=== PATIENT | female | born 1985 | race Caucasian/White ===

== ENCOUNTER → 2021-10-24 00:23 | Outpatient (CLI) | payer OTHER, SELFPAY ==
[2021-10-24 11:14] LABS: SARS-CoV-2 RNA PCR Negative
== END ==
PROVIDERS: Visit Provider Obstetrics & Gynecology
DX: Z01.812 Encounter for preprocedural laboratory examination (principal); Z20.822 Contact with and (suspected) exposure to COVID-19
CPT/HCPCS: C9803; U0003; U0005

== ENCOUNTER 2021-10-24 08:03 | Outpatient (CLI) | payer OTHER, SELFPAY ==
[2021-10-24 08:57] LABS: Hematocrit 35.9 % (37.0-47.0); Hemoglobin 11.7 g/dL (12.0-15.0)
== END 2021-10-24 08:04 | disposition home or self-care (01) ==
LOC: ANHSURGERY 08:08
PROVIDERS: Visit Provider Obstetrics & Gynecology
DX: R10.2 Pelvic and perineal pain (principal); Z01.818 Encounter for other preprocedural examination
CPT/HCPCS: 36415; 85014; 85018; 86850; 86900; 86901

== ENCOUNTER 2021-10-27 01:26 | Day surgery (SDC) | payer OTHER, SELFPAY ==
[2021-10-17 10:44] VITALS: BMI 23.6
--- NOTE | 2021-10-17 11:14 | PC.NURSE ---
Report to the Outpatient Waiting Room, entrance under the green pavilion located off [facility], at 0600 on 10-27-21. OR Time: 0730. - You and your visitor will be asked a series of questions to screen for COVID 19 for your protection. - A mask is required within the hospital. Preoperative COVID Testing Requirements: No COVID Test needed if: (proof is required; if not received patient will have Rapid Test prior to entry) - Patient has received COVID Vaccine at least 14 days prior to procedure date or - Patient has positive COVID test result within last 90 days of surgery date. COVID Test needed if above criteria is not met If not COVID vaccinated a COVID test must be conducted within 72 hours of surgery and patient is asked to isolate self from time of testing until procedure. You will go to the [facility] for your COVID testing. The [facility] site is located at the corner of [address] [facility]. You will only be called if COVID results are positive and your surgeon may reschedule your elective surgery date. 10-24-21 @ 0800 Patients may have clear liquids (water, carbonated beverages, clear teas, apple juice) until 3 hours prior to surgery with a maximum of 20 ounces. 0430 - No food from midnight until time of surgery - Infants may have breast milk until 4 hours before surgery, formula 6 hours prior to surgery. - Children will be allowed to drink immediately following surgery. If applicable, please bring a bottle or sippy cup to assist with drinking. Juice, water, soda, and popsicles are readily available. For infants on formula, please bring formula the day of surgery. Pacifiers are allowed. Take the following medications with a SIP of water the morning of surgery: None Medications to discontinue per physician: vitamins and supplements Date to take last dose: 10-24-21 Please no make-up, nail faroese, hairspray, perfume, deodorant, or body powder the day of surgery. No jewelry (including any body piercings) or valuables the day of surgery, leave them at home. Please take a shower or bath the night before, or the morning of, surgery with an antibacterial soap. Wear comfortable, loose fitting clothing. Children are encouraged to wear pajamas. - Jewelry must be removed prior to entering the operating room. Rings and piercings that are not removed may be cut off. - The hospital will not accept responsibility for valuables. - Please leave all valuables, including medications, at home the day of surgery. If you are going home after surgery, a licensed wheat combine driver must drive you home. - NO public transportation without another adult. - We recommend that an adult stay with you for 24 hours following discharge. - We also recommend that you do not drive, make important decision, drink alcoholic beverages, or take any drugs that were not prescribed by your health care provider for at least 24 hours after your discharge time. For Pediatric surgeries, we recommend two adults accompany the child home (only one inside the building at this time). One visitor will be allowed to accompany the patient into the hospital. Patients visitor will be instructed to remain with patient at all times or leave the building. We will allow the visitor to come back to the postoperative area when patient is ready. Follow any additional instructions given to you from your surgeon. Telephone instructions given to Dior Nuñez and asked if any additional questions and then verbalized understanding. Patient advised to call surgeon office or pre surgery nurse liaison [phone] if any additional questions.
--- NOTE | 2021-10-26 07:48 | P.HP_ITS ---
H&P: HPI History of Present Illness Date/Time: 10/26/21 07:48 36-year-old patient admitted for diagnostic laparoscopy with hysteroscopy and dilatation curettage secondary to excessive heavy bleeding dyspareunia and pelvic pain. She has had chronic and severe pelvic pain ultrasound showed a right complex cyst with moderate marked of fluid and enlarged uterus. Risks and benefits reviewed in full details. She had all questions answered and asked to proceed Chief Complaint: pelvic pain and bleeding Review of Systems Review of Systems: All systems reviewed & are unremarkable except as noted in HPI and below [facility] Family History Family History Mother Hypertension Social History Social History Smoking packs per day: 0.5 Smoking cigarettes per day: 10.0 Years smoked: 10 Smoking pack-years: 5.00 Smoking status: Former smoker Tobacco type: cigarettes Second hand tobacco smoke exposure: No Alcohol intake: current Drinks per week: 1 Alcohol use details: occasionally Substance use: never Substance use type: does not use Spiritual care concerns: No Meds Home Medications and Allergies Home Medications Medication Instructions Recorded Confirmed Type oy-ya-LJ-vit O-clfvd-svg-coQ10 1 cap PO DAILY 10/17/21 10/17/21 History [Daily Multivitamin] Allergies Allergy/AdvReac Type Severity Reaction Status Date / Time No Known Allergies Allergy Verified 10/17/21 10:38 Exam Const: General: no acute distress Eyes: General: appearance normal, both eyes and all related structures Neck: Neck: supple and no JVD Thyroid: thyroid normal Resp: Effort & Inspection: normal respiratory effort Auscultation: clear to auscultation bilaterally Cardio: Rate: regular rate Rhythm: regular rhythm GI: Inspection: non-distended GI Palp: Yes Soft to palpation, No Tenderness to palpation present (GI) and No Guarding due to palpation present (GI) Auscultation: normal bowel sounds : External Female Exam: normal external appearance Speculum Exam - Vagina: normal appearance of the vagina Speculum Exam - Cervix: normal appearance of the cervix Bimanual exam- vagina & uterus: enlarged Bimanual Exam- Adnexa, other: tender Skin: General skin exam: no rashes or lesions noted Extrem: General: normal to inspection and no edema Psych: Mental Status: mental status grossly normal Affect: normal affect Assessment and Plan Additional Plan impression: Pelvic pain with enlarged uterus and bleeding Plan: Laparoscopy/ hysteroscopy / dilatation and curettage
[2021-10-27] VITALS (7 sets, daily range): BP systolic 92–119; BP diastolic 54–79; PULSE 48–76; RESP 10–18; TEMP 36.1–36.5; O2SAT 99–100; BMI 22.6
--- NOTE | 2021-10-27 06:37 | WPDANESEPPF ---
Anes - Initial Pre Proc Eval Procedure: Operation Date: 10/27/21 07:30 Proposed Procedures p Diagnostic Laparoscopy, Hysteroscopy Dilation and Curettage - Brian Diop MD Date/Time: 10/27/21 06:37 Surgeon: Brian Diop MD Pre Op Diagnosis: pelvic pain, heavy bleeding, Patient Data Age: 36 Gender: F Height: 1.78 m Weight: 74.84 kg Allergies Allergy/AdvReac Type Severity Reaction Status Date / Time No Known Allergies Allergy Verified 10/17/21 10:38 Home Medications Medication Instructions Recorded Confirmed Type tq-xr-TZ-vit O-tnwkt-hjj-coQ10 1 cap PO DAILY 10/17/21 10/17/21 History [Daily Multivitamin] Patient hx anesthesia problems: none Family hx anesthesia problems: none Results Review: All pre-operative results and documents have been reviewed as part of the pre-operative evaluation. [facility] Past Medical History Medical History (Updated 10/27/21 @ 06:38 by Brian Fitzgerald MD) Abnormal uterine bleeding Surgical History Surgical History (Updated 10/27/21 @ 06:38 by Brian Fitzgerald MD) H/O breast augmentation History of section History of laparotomy Family History Family History Mother Hypertension Social History Social History (Updated 10/27/21 @ 06:39 by Brian Fitzgerald MD) Smoking packs per day: 0.5 Smoking cigarettes per day: 10.0 Years smoked: 10 Smoking pack-years: 5.00 Smoking status: Former smoker Tobacco type: cigarettes Second hand tobacco smoke exposure: No Alcohol intake: current Drinks per week: 1 Alcohol use details: occasionally Substance use: never Substance use type: does not use Living arrangements: with family Spiritual care concerns: No Anes - Eval Final PreProcedure Day of Procedure 10/27/21 06:37 Patient weight: normal Heart: regular rate and rhythm Lungs: clear to auscultation Airway: Mallampati scale class 1 Neurological: alert and oriented Last oral intake: >/= 8 hours ASA classification: I Emergent: no Anesthetic plan: proceed Anesthesia type and monitoring: general ETT and standard monitoring Results Review: All pre-operative results and documents have been reviewed as part of the pre-operative evaluation. Informed Consent: The patient's anesthetic plan and its attendant risks and benefits were discussed with the patient/family/POA. Questions were solicited and answers provided to the satisfaction of the patient/family/POA.
--- NOTE | 2021-10-27 07:04 | WPDHPUPDATE1 ---
History and Physical Update Update Date/Time: 10/27/21 07:04 History and Physical has been reviewed, including an updated exam of the patient. There are NO changes in the patient's condition. Risks, benefits, and alternatives have been discussed and questions answered. Patient agrees to proceed with procedure.
[2021-10-27] MEDS: KETOROLAC 15 MG/ML VIAL (*BKC) IV PUSH (07:11)
[2021-10-27] MEDS: ACETAMINOPHEN 500 MG TABLET 1000 MG PO (07:11)
[2021-10-27] MEDS: LACTATED RINGERS 1,000 ML 30 ML IV CONT (07:11)
[2021-10-27] MEDS: SCOPOLAMINE 1.5 MG PATCH TRANSDERM (07:15)
--- NOTE | 2021-10-27 08:17 | P.OP_ITS ---
Procedure Note - Detailed Date of Procedure 10/27/21 Pre-op Diagnosis pelvic pain, heavy bleeding, Post-op Diagnosis Other (Bilateral ovarian cyst/ adhesions/endometriosis) Procedure Performed Laparoscopy/destruction of bilateral ovarian cyst/lysis of adhesions/destruction of endometriosis/hysteroscopy/dilatation curettage Surgeon Brian Diop MD Anesthesia General Indications 36-year-old with pelvic pain and heavy bleeding Findings Multiple adhesions were seen. Bilateral ovarian cysts were seen including 1 hemorrhagic cyst on the right. The uterus was mildly enlarged and stuck anteriorly to the abdominal wall. On history os could be uterus sounded to 8cm. Thick irregular endometrial tissue was seen. Description of Procedure The patient was prepped draped in the normal sterile fashion placed in dorsal lithotomy position. Under excellent general trach anesthesia weighted speculum placed posterior fornix vagina. Anterior lip of the cervix grasped with a single single-tooth tenaculum. Hodge's cannula inserted attached to the single- tooth to be used later for uterine manipulation. After emptying the bladder clear urine the weighted speculum was gloves were changed. An infraumbilical incision made the Veress needle passed in the abdomen. Abdomen filled with CO2 gas 15mmHg. The 5mm trocar advanced under direct visualization assuring no injury. Patient placed in Trendelenburg and multiple adhesions in the findings above were seen. Using sharp dissection with Endo Kenyatta the adhesions were sharply dissected the uterus was markedly adherent to the anterior abdominal wall via thick the layer in this was sharply dissected in the uterus was then noted to be easily mobile after that. Irrigation was undertaken until clear. Small area of endometriosis was seen on the the cul-de- sac on the left and this was cauterized at 35 w per 2nd with monopolar cautery. A large hemorrhagic cyst was seen on the right and this was entered by linear dissection and the drained of bloody fluid. This was irrigated until the ovary appeared completely normal the in and hemostasis was assured. Cysts were seen on the left and these were opened linear fashion and these were simple in nature . Irrigation was then undertaken clear and no other abnormalities were seen photo documentation undertaken in the lower site removed. The gas removed the incisions closed with 4 Monocryl and glue and attention was then turned to the hysteroscopy. The uterus sounded 9cm. Serial dilatation with fragmented dilators performed followed by passes the 5. Visualizing hysteroscope using normal saline as visualizing medium. Thick irregular endometrial tissue was seen but no evidence of any serious abnormalities uterus was then scraped over the entire 360? until a good grating sound was heard. The instruments were then removed the patient tolerated the procedure well. All sponge, needle, instrument counts were correct. There were no immediate complications Estimated Blood Loss 5 Drains No Packing No Pathology Yes Complications No immediate complications Condition Stable Disposition PACU
[2021-10-27] MEDS: oxyCODONE HCL (*CRX) 5 MG TAB IR PO (09:56)
== END 2021-10-27 10:10 | disposition home or self-care (01) ==
PROVIDERS: Visit Provider Obstetrics & Gynecology
PROC: 0UDB8ZZ Extraction of Endometrium, Via Natural or Artificial Opening Endoscopic (ICD-10-PCS; CPT 58558; principal; 2021-10-27 07:30)
DX: R10.2 Pelvic and perineal pain (principal); N85.8 Other specified noninflammatory disorders of uterus; N93.9 Abnormal uterine and vaginal bleeding, unspecified; N83.202 Unspecified ovarian cyst, left side; N83.201 Unspecified ovarian cyst, right side; N73.6 Female pelvic peritoneal adhesions (postinfective); Z87.891 Personal history of nicotine dependence
CPT/HCPCS: 58558; 58662; 36415; 85014; 85018; 86850; 86900; 86901; 88305; A9270; C9803; J0330; J1885; J2250; J2405; J2704; J2710; J3010; J7030; J7120; U0003; U0005

== ENCOUNTER 2022-12-12 08:13 | Outpatient (CLI) | payer OTHER, SELFPAY ==
[2022-12-12 09:49] LABS: Basophils Percent Auto 0.8 % (0.2-1.2); Eosinophils Absolute Auto 0.1 K/mm3 (0-0.3); Eosinophils Percent Auto 1.6 % (0-4.4); Hematocrit 37.6 % (37.0-47.0); Hemoglobin 12.2 g/dL (12.0-15.0); Immature Granulocyte Absolute 0.01 K/mm3 (0.00-0.031); Immature Granulocyte Percent A 0.3 % (0-0.5); Lymphocytes Absolute Auto 1.35 K/mm3 (0.9-3.2); Lymphocytes Percent Auto 35.9 % (18.3-44.2); Mean Corpuscular HGB Conc 32.4 g/dl (32-36); Mean Corpuscular Hemoglobin 30.1 pg (26-34); Mean Corpuscular Volume 92.8 fl (80-100); Mean Platelet Volume 10.6 fl (7.4-10.4); Monocytes Absolute Auto 0.3 K/mm3 (0.1-0.6); Monocytes Percent Auto 7.4 % (2.6-8.5); Platelet Count Result 188 k/mm3 (150-375); Red Blood Count 4.05 M/mm3 (4.2-5.4); Red Cell Distribution Width 11.4 % (11.5-14.5); White Blood Count 3.8 K/mm3 (4.5-10.0)
== END 2022-12-12 08:14 | disposition home or self-care (01) ==
PROVIDERS: Visit Provider Obstetrics & Gynecology
DX: N81.4 Uterovaginal prolapse, unspecified (principal)
CPT/HCPCS: 36415; 85025; 86850; 86900; 86901

== ENCOUNTER 2022-12-14 02:02 | Day surgery (SDC) | payer OTHER, SELFPAY ==
[2022-12-07 12:43] VITALS: BMI 22.9
--- NOTE | 2022-12-07 12:47 | PC.NURSE ---
Report to the Outpatient Waiting Room, entrance under the green pavilion located off [facility], at time 7:30 on date 12/14/22. Planned Procedure Time: 9:30. Time changes happen often and if your time is changed the preop area will call you the afternoon before. - You and your visitor will be asked to self-screen and do not enter if you have any COVID symptoms. - A mask is optional within the hospital at this time. Patients may have clear liquids (water, carbonated beverages, clear teas, apple juice) until 3 hours prior to surgery (6:30) with a maximum of 20 ounces. - No food from midnight until time of surgery Take the following medications with a SIP of water the morning of surgery: N/A DO NOT STOP ANY OF YOUR OTHER PRESCRIPTION MEDICATIONS PRIOR TO SURGERY EXCEPT THE FOLLOWING Medications to discontinue per physician: N/A Date to take last dose: N/A Please no make-up, nail estonian, hairspray, perfume, deodorant, or body powder the day of surgery. No jewelry (including any body piercings) or valuables the day of surgery, leave them at home. Please take a shower or bath the night before, or the morning of, surgery with an antibacterial soap. Wear comfortable, loose fitting clothing. - Jewelry must be removed prior to entering the operating room. Rings and piercings that are not removed may be cut off. - The hospital will not accept responsibility for valuables. - Please leave all valuables, including medications, at home the day of surgery. If you are going home after surgery, a licensed refrigerated national truck driver must drive you home. - NO public transportation without another adult if you receive anesthesia. - We recommend that an adult stay with you for 24 hours following discharge. - We also recommend that you do not drive, make important decision, drink alcoholic beverages, or take any drugs that were not prescribed by your health care provider for at least 24 hours after your discharge time. Follow any additional instructions given to you from your surgeon. If you or anyone in your household have experienced Covid symptoms in the past week, please notify your surgeon or the nurse liaison at the phone number below for possible testing. Telephone instructions given to PT - BENITA GAUTHIER and asked if any additional questions and then verbalized understanding. Patient advised to call surgeon office or pre surgery nurse liaison [phone] if any additional questions.
--- NOTE | 2022-12-12 07:46 | PM.IMHP ---
H&P: HPI History of Present Illness Date/Time: 12/12/22 07:46 Chief Complaint: uterine prolapse/pelvic pain /endometriosis Narrative: 37-year-old female with severe uterine prolapse pelvic pain and endometriosis admitted for robotic hysterectomy bilateral salpingectomy. Risks and benefits reviewed great detail. She received the [employer] handout entitled hysterectomy as well as advanced the handout. She understands this will make her permanently infertile. She had all questions answered. She asked to proceed PMFSH Past Medical History Medical History Abnormal uterine bleeding Surgical History Surgical History H/O breast augmentation History of section History of laparotomy Family History Family History Mother Hypertension Social History Social History Smoking packs per day: 0.5 Smoking cigarettes per day: 10.0 Years smoked: 10 Smoking pack-years: 5.00 Smoking status: Former smoker Tobacco type: cigarettes Second hand tobacco smoke exposure: No Smoking end date: 08/05/14 Alcohol intake: never Drinks per week: 1 Alcohol use details: occasionally Substance use: never Substance use type: does not use Living arrangements: with family Spiritual care concerns: No Meds Home Medications and Allergies Home Medications Medication Instructions Recorded Confirmed Type urrkbqaf-ban-CY 200 mcg-vit K 100 1 cap PO DAILY 10/17/21 10/27/21 History mcg-lycop 500 [id number] capsule (Daily Multivitamin) hydrocodone 5 mg-acetaminophen 325 1 tablet PO Q4H PRN pain #30 tabs 10/27/21 Rx mg tablet Allergies Allergy/AdvReac Type Severity Reaction Status Date / Time No Known Allergies Allergy Verified 12/07/22 12:43 Exam Const: General: cooperative, healthy appearing and comfortable Nutritional Appearance: average body habitus Orientation/consciousness: oriented to person, oriented to place and oriented to time HENMT: Head: normal to inspection Resp: Effort & Inspection: normal respiratory effort Cardio: Rate: regular rate Rhythm: regular rhythm Heart sounds: S1 normal heart sound present and S2 normal heart sound present GI: Inspection: normal to inspection : External Female Exam: normal external appearance Speculum Exam - Vagina: normal appearance of the vagina Speculum Exam - Cervix: normal appearance of the cervix ( second-degree prolapse) Bimanual exam- vagina & uterus: Uterine tenderness Bimanual Exam- Adnexa, other: normal adnexae Assessment and Plan Assessment and plan (1) Uterine prolapse: Code(s): N81.4 - Uterovaginal prolapse, unspecified Status: Acute (2) Pelvic pain: Code(s): R10.2 - Pelvic and perineal pain Status: Acute (3) Endometriosis: Code(s): N80.9 - Endometriosis, unspecified Status: Acute Plan robotic total vaginal hysterectomy and bilateral salpingectomy
[2022-12-14] VITALS (9 sets, daily range): BP systolic 97–117; BP diastolic 58–71; PULSE 54–78; RESP 11–20; TEMP 36.2–36.8; O2SAT 99–100
--- NOTE | 2022-12-14 06:20 | WPDHPUPDATE1 ---
History and Physical Update Update Date/Time: 12/14/22 06:20 History and Physical has been reviewed, including an updated exam of the patient. There are NO changes in the patient's condition. Risks, benefits, and alternatives have been discussed and questions answered. Patient agrees to proceed with procedure.
[2022-12-14] MEDS: ACETAMINOPHEN 500 MG TABLET 1000 MG PO (08:22)
[2022-12-14] MEDS: LACTATED RINGERS 1,000 ML 30 ML IV CONT ×2 (08:30→11:21)
[2022-12-14] MEDS: KETOROLAC 15 MG/ML VIAL (*BKC) IV PUSH (08:35)
--- NOTE | 2022-12-14 09:00 | P.PNAN_ITS ---
Anes - Initial Pre Proc Eval Procedure: Operation Date: 12/14/22 09:30 Proposed Procedures p Robotic Assisted Total Vaginal Hysterectomy with Bilateral Salpingectomy - Brian Lee MD Date/Time: 12/14/22 09:00 Surgeon: Brian Lee MD Pre Op Diagnosis: Uterine Prolapse, Pelv Pain, Endometriosis Patient Data Age: 37 Gender: F Height: 1.78 m Weight: 72.6 kg Allergies Allergy/AdvReac Type Severity Reaction Status Date / Time No Known Allergies Allergy Verified 12/14/22 08:19 Home Medications Medication Instructions Recorded Confirmed Type faosyvey-urp-ZO 200 mcg-vit K 100 1 cap PO DAILY 10/17/21 12/14/22 History mcg-lycop 500 [id number] capsule (Daily Multivitamin) hydrocodone 5 mg-acetaminophen 325 1 tablet PO Q4H PRN pain #30 tabs 10/27/21 12/14/22 Rx mg tablet hydrocodone 5 mg-acetaminophen 325 1 tablet PO Q4H PRN pain #20 tabs 12/14/22 Rx mg tablet Patient hx anesthesia problems: none Family hx anesthesia problems: none Results Review: All pre-operative results and documents have been reviewed as part of the pre- operative evaluation. [facility] Past Medical History Medical History Abnormal uterine bleeding Surgical History Surgical History H/O breast augmentation History of section History of laparotomy Family History Family History Mother Hypertension Social History Social History Smoking packs per day: 0.5 Smoking cigarettes per day: 10.0 Years smoked: 10 Smoking pack-years: 5.00 Smoking status: Former smoker Tobacco type: cigarettes Second hand tobacco smoke exposure: No Smoking end date: 08/05/14 Alcohol intake: never Drinks per week: 1 Alcohol use details: occasionally Substance use: never Substance use type: does not use Living arrangements: with family Spiritual care concerns: No Anes - Eval Final PreProcedure Day of Procedure 12/14/22 09:00 Patient weight: normal Heart: regular rate and rhythm Lungs: clear to auscultation Airway: Mallampati scale class 1 Neurological: alert and oriented Last oral intake: >/= 8 hours ASA classification: I Emergent: no Anesthetic plan: proceed Anesthesia type and monitoring: general ETT and standard monitoring Results Review: All pre-operative results and documents have been reviewed as part of the pre- operative evaluation. Informed Consent: The patient's anesthetic plan and its attendant risks and benefits were discussed with the patient/family/POA. Questions were solicited and answers provided to the satisfaction of the patient/family/POA.
--- NOTE | 2022-12-14 11:05 | W.PM.PROC2 ---
Procedure Note - Detailed Date of Procedure 12/14/22 Pre-op Diagnosis Uterine Prolapse, Pelv Pain, Endometriosis Post-op Diagnosis Same Procedure Performed Robotic total vaginal hysterectomy/ bilateral salpingectomy/ right cystectomy Surgeon Brian Lee MD Anesthesia General Indications since 37-year-old female with prolapse endometriosis and enlarged uterus and history of endometriosis Findings enlarged uterus. Right fallopian tube was partially missing. A right endometrioma was seen. Description of Procedure Patient was prepped draped in normal sterile fashion placed in the dorsal lithotomy position. Under excellent general trach anesthesia weighted speculum placed in posterior fornix vagina. Anterior lip of the cervix grasped with a single-tooth tenaculum. The uterus sounded to 11cm. Serial dilatation with fragmented dilators performed followed by passage of the 10. JERMAINE and the 3. Cold cup. Next the 16 Icelandic catheter was placed in the bladder draining clear urine. The single-tooth tenaculum and speculum were removed. The gloves were changed. A supraumbilical incision made the Veress needle passed in the abdomen. Abdomen filled with CO2 gas to 15mm Hg. the 8mm trocar was advanced in the abdomen. Downside visualized no injury seen. Patient was placed in Trendelenburg at20? and right left lateral quadrant incisions made. 8Mm trocars advanced under direct visualization assuring no injury. A right upper quadrant incision made. The 8mm trocar advanced under direct visualization assuring no injury. The robot was docked. Attention was turned to the console. Small adhesion was seen anteriorly this was a 12 omentum to the anterior abdominal wall. This was sharply dissected without difficulty. The left ovary appeared within normal limits. The left fallopian tube was partially missing. There was moderate size right endometrioma on the right ovary. This was dissected out and shelled out. An placed in the cul-de-sac. The round ligament on the left was grasped, burned, cut. Anteriorly a bladder flap was formed by sharply dissecting the peritoneum and reflecting the bladder caudally away from the cervix and uterus to the opposite round ligament was clamped, burned, cut. The portion of left fallopian tube was dissected away from the ovary and left attached to its uterine origin. In like fashion the right fallopian tube was dissected away from the ovarian complex and left attached to its origin. Next the end utero-ovarian ligament on left was skeletonized conserving the left ovary clamping burning cutting and bringing this the level of previously cut round ligament. Conserving the right ovary the utero-ovarian ligament was skeletonized clamping burning cutting and bringing this to the level of previously cut round ligament. Next the cardinal broad ligaments on the left were serially skeletonized clamping burning cutting down the lateral edge of the uterus until the uterine vessels could be seen on the left. These were individually clamped, burned, cut. In like fashion the cardinal broad ligaments on the right were skeletonized clamping burning cutting and hugging the cervix uterus until the uterine vessels could be seen on the right. These were individually clamped, burned, cut. Blanching the uterus was noted and a colpotomy incision was made. Cervix uterus and tubes removed through the vagina. The portion of ovary was then passed through the vagina as well. Irrigation was undertaken until clear blood loss estimated at much [id number]. The vagina was then closed with continuous running 0V lock from lateral edge to lateral edge back to midline. Irrigation the subcutaneous layer and the skin closed with 4-0 Monocryl and glue after the robot had been undocked and gas removed from the abdomen. The patient was awakened went to recovery in satisfactory condition. All sponge, needle, instrument counts were correct. There were no im
[2022-12-14] MEDS: fentaNYL CITRATE INJ (*CRX) 100 MCG/2 ML VIAL 25 MCG IV PUSH ×2 (12:12→12:28)
--- NOTE | 2022-12-14 12:30 | PC.NURSE ---
This patient, Dior Nuñez, was received from PACU on 12/14/22 at 1230. Patient/family oriented to unit policies and routines
[2022-12-14] MEDS: DEXTROSE 5%/LACTATED RINGERS 1,000 ML 125 ML IV CONT (13:11)
[2022-12-14] MEDS: DOCUSATE SODIUM 100 MG CAPSULE PO (17:03)
[2022-12-14] MEDS: SIMETHICONE 80 MG TAB.CHEW PO (17:03)
[2022-12-14] MEDS: KETOROLAC 30 MG/ML VIAL (*BKC) IV PUSH (17:04)
[2022-12-14] MEDS: HYDROcodone/acetaminophen (*CRX) 5-325 MG TABLET 1 TAB PO (20:59)
[2022-12-15] MEDS: IBUPROFEN 600 MG TABLET PO ×2 (00:46→08:02)
[2022-12-15 00:50] VITALS: BP 89/47; PULSE 60; RESP 16; TEMP 36.9; O2SAT 100
[2022-12-15 05:00] VITALS: BP 87/54; PULSE 56; RESP 16; TEMP 36.6; O2SAT 98
[2022-12-15 06:23] LABS: Basophils Percent Auto 0.3 % (0.2-1.2); Eosinophils Absolute Auto 0.1 K/mm3 (0-0.3); Eosinophils Percent Auto 1.5 % (0-4.4); Hemoglobin 10.1 g/dL (12.0-15.0); Immature Granulocyte Absolute 0.01 K/mm3 (0.00-0.031); Immature Granulocyte Percent A 0.1 % (0-0.5); Immature Platelet Fraction Pct 4.6 % (0.9-11.2); Lymphocytes Absolute Auto 1.68 K/mm3 (0.9-3.2); Lymphocytes Percent Auto 21.2 % (18.3-44.2); Mean Corpuscular HGB Conc 32.6 g/dl (32-36); Mean Corpuscular Hemoglobin 31.1 pg (26-34); Mean Corpuscular Volume 95.4 fl (80-100); Mean Platelet Volume 10.2 fl (7.4-10.4); Monocytes Absolute Auto 0.4 K/mm3 (0.1-0.6); Monocytes Percent Auto 4.8 % (2.6-8.5); Neutrophils Absolute Auto 5.7 K/mm3 (1.3-6.7); Neutrophils Percent Auto 72.1 % (45.5-73.1); Platelet Count Result 142 k/mm3 (150-375); Red Blood Count 3.25 M/mm3 (4.2-5.4); Red Cell Distribution Width 11.8 % (11.5-14.5); White Blood Count 7.9 K/mm3 (4.5-10.0)
--- NOTE | 2022-12-15 07:42 | PM.DS ---
DS: Admitting Diagnosis Discharge Date 12/15/2022 Admitting Diagnosis pelvic pain/uterine prolapse/ enlarged uterus/endometriosis DS: Discharge Diagnosis Discharge Diagnosis (1) Endometriosis: Code(s): N80.9 - Endometriosis, unspecified Status: Acute (2) Pelvic pain: Code(s): R10.2 - Pelvic and perineal pain Status: Acute (3) Uterine prolapse: Code(s): N81.4 - Uterovaginal prolapse, unspecified Status: Acute DS: Summary Hospital Course Reason for hospitalization: patient was admitted on 12/14/2022 for robotic total vaginal hysterectomy and bilateral salpingectomy. She underwent that procedure with right cystectomy secondary to an endometrioma on the right ovary. Hospital Course: The patient's hospital course unremarkable. She remained afebrile. She was up, voiding without difficulty, eating regular diet, ambulating, and generally without complaints. Time Spent with Patient Time attestation: Total time spent providing and/or coordinating discharge services: Exam Const: General: cooperative, healthy appearing, comfortable and well groomed Orientation/consciousness: oriented to person, oriented to place and oriented to time HENMT: Head: normal to inspection Resp: Effort & Inspection: normal respiratory effort Cardio: Rate: regular rate Rhythm: regular rhythm Heart sounds: S1 normal heart sound present and S2 normal heart sound present GI: Inspection: normal to inspection and incision ( Wounds are clean drain intact) DS: Data Data Completed and Pending Pending studies at discharge: Pending at discharge 12/14/22 11:01 Surgical [PTH] Routine Labs on day of discharge: Labs from last 24 hours 12/15/22 06:07 WBC 7.9 RBC 3.25 L Hgb 10.1 L Hct 31.0 L MCV 95.4 MCH 31.1 MCHC 32.6 RDW 11.8 Plt Count 142 L MPV 10.2 Immature Gran % (Auto) 0.1 Neut % (Auto) 72.1 Lymph % (Auto) 21.2 Harding % (Auto) 4.8 Eos % (Auto) 1.5 Baso % (Auto) 0.3 Lymph # (Auto) 1.68 Harding # (Auto) 0.4 Eos # (Auto) 0.1 Baso # (Auto) 0.0 Abs Immat Gran (auto) 0.01 Absolute Neuts (auto) 5.7 Absolute Nucleated RBC 0.0 Nucleated RBC % 0.0 % Immature Plt Fraction 4.6 Discharge Plan Discharge Patient Disposition: Home, Self-Care Stand Alone Forms: General Discharge Instructions Follow-up/Referrals: Brian Garcia MD [Physician] - Discharge Medications: New hydrocodone-acetaminophen 5-325 mg tablet 1 tablet PO Q4H PRN (Reason: pain) Qty: 20 0RF No Action Daily Multivitamin 200-100-500 mcg Capsule 1 cap PO DAILY hydrocodone-acetaminophen 5-325 mg tablet 1 tablet PO Q4H PRN (Reason: pain) Qty: 30 0RF
--- NOTE | 2022-12-15 07:44 | PM.GYNPNOP ---
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 Postoperative Procedures: Procedures Operation Date: 12/14/22 09:30 Actual Procedure Side Surgeon p Robotic Assisted Total Vaginal Hysterectomy with Bilateral Salpingectomy,Left Ovarian Cystectomy Bilateral Brian Lee MD Postoperative day: 1 Postoperative status: doing well Postoperative plan: routine post-op care, see orders, advance diet and discharge Time Spent With Patient Time: Total time spent is greater than 50% in coordination of care (as documented) at patient's floor/unit and/or counseling patient: Time with patient: less than 15 minutes WELL SERVICE PUMP EQUIPMENT OPERATOR- PN:Subj Post-Op Subjective Date/time seen: 12/15/22 07:44 Subjective: patient has no complaints, pain is well controlled and patient is tolerating oral intake Exam Const: General: cooperative, healthy appearing and comfortable Nutritional Appearance: average body habitus Orientation/consciousness: oriented to person, oriented to place and oriented to time HENMT: Head: normal to inspection Resp: Effort & Inspection: normal respiratory effort Cardio: Rate: regular rate Rhythm: regular rhythm Heart sounds: S1 normal heart sound present and S2 normal heart sound present GI: Inspection: normal to inspection and incision ( wounds clean dry and intact) Auscultation: normal bowel sounds WELL SERVICE PUMP EQUIPMENT OPERATOR - PN: Obj Data Vital Signs Vital Signs: Vital Signs - 24 hr 12/14/22 07:51 12/14/22 11:20 12/14/22 11:35 Temperature 97.1 F L 97.4 F L Pulse Rate 64 59 L 54 L Respiratory Rate 20 12 13 Blood Pressure 117/66 112/64 115/71 Pulse Oximetry 100 100 100 Oxygen Delivery Room Air Simple Face Mask Room Air Oxygen Flow Rate 10 12/14/22 11:50 12/14/22 12:05 12/14/22 12:20 Temperature Pulse Rate 60 54 L 54 L Respiratory Rate 14 12 11 L Blood Pressure 106/66 103/63 100/60 Pulse Oximetry 100 99 100 Oxygen Delivery Room Air Room Air Room Air Oxygen Flow Rate 12/14/22 12:50 12/14/22 16:15 12/14/22 20:00 Temperature 97.6 F 97.6 F 98.3 F Pulse Rate 56 L 71 78 Respiratory Rate 16 16 18 Blood Pressure 99/63 L 99/58 L 97/61 L Pulse Oximetry 100 100 100 Oxygen Delivery Oxygen Flow Rate 12/14/22 20:00 12/15/22 00:50 12/15/22 00:50 Temperature 98.4 F Pulse Rate 72 60 60 Respiratory Rate 18 16 16 Blood Pressure 89/47 L Pulse Oximetry 100 100 100 Oxygen Delivery Room Air Room Air Oxygen Flow Rate 12/15/22 05:00 12/15/22 05:00 Temperature 97.8 F Pulse Rate 56 L 56 L Respiratory Rate 16 16 Blood Pressure 87/54 L Pulse Oximetry 98 98 Oxygen Delivery Room Air Oxygen Flow Rate Intake/Output Intake/Output: Intake & Output 12/12/22 12/13/22 12/14/22 12/15/22 23:59 23:59 23:59 23:59 Intake Total 2140 Output Total 1200 300 Balance 940 -300 Meds/Results Medications: Active Medications Generic Name Dose Route Start Last Admin Trade Name Freq PRN Reason Stop Dose Admin Hydrocodone Bitart/Acetaminophen 1 tab 12/14/22 12:32 Hydrocodone/Acetaminophen (*Crx) 10-325 Mg Tablet PO Q3H PRN Pain Rated 6 or Greater Hydrocodone Bitart/Acetaminophen 1 tab 12/14/22 12:32 12/14/22 20:59 Hydrocodone/Acetaminophen (*Crx) 5-325 Mg Tablet PO 1 tab Q3H PRN Administration Pain Rated 5 or Less Docusate Sodium 100 mg 12/14/22 17:00 12/14/22 17:03 Docusate Sodium 100 Mg Capsule PO 100 mg BID LINCOLN Administration Enoxaparin Sodium 40 mg 12/15/22 09:00 Enoxaparin 40 Mg/0.4 Ml Syringe SUB-Q DAILY LINCOLN Ibuprofen 600 mg 12/14/22 12:32 12/15/22 00:46 Ibuprofen 600 Mg Tablet PO 600 mg Q6H PRN Administration Cramping Ketorolac Tromethamine 30 mg 12/14/22 12:32 12/14/22 17:04 Ketorolac 30 Mg/Ml Vial (*Bkc) IV PUSH 12/19/22 12:31 30 mg Q6H PRN Administration Pain Rated 4-6 Naloxone HCl 0.1 mg 12/14/22 12:32 Naloxone Hcl 0.4 Mg/Ml Vial IV PUSH Q2M PRN Respiratory rate less than 10 Ondansetron HCl 4 mg 12/14/22 12:32 Onda
[2022-12-15 07:45] VITALS: BP 96/66; PULSE 64; RESP 18; TEMP 36.8
--- NOTE | 2022-12-15 07:46 | PM.GYNPNOP ---
ACCOUNTING MANAGER ASSISTANT CONTROLLER - A/P Postoperative Procedures: Procedures Operation Date: 12/14/22 09:30 Actual Procedure Side Surgeon p Robotic Assisted Total Vaginal Hysterectomy with Bilateral Salpingectomy,Left Ovarian Cystectomy Bilateral Brian Lee MD Postoperative day: 1 Postoperative status: doing well Postoperative plan: routine post-op care, see orders, advance diet and discharge Time Spent With Patient Time: Total time spent is greater than 50% in coordination of care (as documented) at patient's floor/unit and/or counseling patient: Time with patient: less than 15 minutes ACCOUNTING MANAGER ASSISTANT CONTROLLER- PN:Subj Post-Op Subjective Date/time seen: 12/15/22 07:46 Subjective: patient has no complaints, patient desires discharge and patient is tolerating oral intake Exam Const: General: cooperative, healthy appearing and comfortable Nutritional Appearance: average body habitus Orientation/consciousness: oriented to person, oriented to place and oriented to time Resp: Effort & Inspection: normal respiratory effort Cardio: Rate: regular rate Rhythm: regular rhythm Heart sounds: S1 normal heart sound present and S2 normal heart sound present GI: Inspection: normal to inspection and incision ( wounds are clean dry and intact) ACCOUNTING MANAGER ASSISTANT CONTROLLER - PN: Obj Data Vital Signs Vital Signs: Vital Signs - 24 hr 12/14/22 07:51 12/14/22 11:20 12/14/22 11:35 Temperature 97.1 F L 97.4 F L Pulse Rate 64 59 L 54 L Respiratory Rate 20 12 13 Blood Pressure 117/66 112/64 115/71 Pulse Oximetry 100 100 100 Oxygen Delivery Room Air Simple Face Mask Room Air Oxygen Flow Rate 10 12/14/22 11:50 12/14/22 12:05 12/14/22 12:20 Temperature Pulse Rate 60 54 L 54 L Respiratory Rate 14 12 11 L Blood Pressure 106/66 103/63 100/60 Pulse Oximetry 100 99 100 Oxygen Delivery Room Air Room Air Room Air Oxygen Flow Rate 12/14/22 12:50 12/14/22 16:15 12/14/22 20:00 Temperature 97.6 F 97.6 F 98.3 F Pulse Rate 56 L 71 78 Respiratory Rate 16 16 18 Blood Pressure 99/63 L 99/58 L 97/61 L Pulse Oximetry 100 100 100 Oxygen Delivery Oxygen Flow Rate 12/14/22 20:00 12/15/22 00:50 12/15/22 00:50 Temperature 98.4 F Pulse Rate 72 60 60 Respiratory Rate 18 16 16 Blood Pressure 89/47 L Pulse Oximetry 100 100 100 Oxygen Delivery Room Air Room Air Oxygen Flow Rate 12/15/22 05:00 12/15/22 05:00 Temperature 97.8 F Pulse Rate 56 L 56 L Respiratory Rate 16 16 Blood Pressure 87/54 L Pulse Oximetry 98 98 Oxygen Delivery Room Air Oxygen Flow Rate Intake/Output Intake/Output: Intake & Output 12/12/22 12/13/22 12/14/22 12/15/22 23:59 23:59 23:59 23:59 Intake Total 2140 Output Total 1200 300 Balance 940 -300 Meds/Results Medications: Active Medications Generic Name Dose Route Start Last Admin Trade Name Freq PRN Reason Stop Dose Admin Hydrocodone Bitart/Acetaminophen 1 tab 12/14/22 12:32 Hydrocodone/Acetaminophen (*Crx) 10-325 Mg Tablet PO Q3H PRN Pain Rated 6 or Greater Hydrocodone Bitart/Acetaminophen 1 tab 12/14/22 12:32 12/14/22 20:59 Hydrocodone/Acetaminophen (*Crx) 5-325 Mg Tablet PO 1 tab Q3H PRN Administration Pain Rated 5 or Less Docusate Sodium 100 mg 12/14/22 17:00 12/14/22 17:03 Docusate Sodium 100 Mg Capsule PO 100 mg BID LINCOLN Administration Enoxaparin Sodium 40 mg 12/15/22 09:00 Enoxaparin 40 Mg/0.4 Ml Syringe SUB-Q DAILY LINCOLN Ibuprofen 600 mg 12/14/22 12:32 12/15/22 00:46 Ibuprofen 600 Mg Tablet PO 600 mg Q6H PRN Administration Cramping Ketorolac Tromethamine 30 mg 12/14/22 12:32 12/14/22 17:04 Ketorolac 30 Mg/Ml Vial (*Bkc) IV PUSH 12/19/22 12:31 30 mg Q6H PRN Administration Pain Rated 4-6 Naloxone HCl 0.1 mg 12/14/22 12:32 Naloxone Hcl 0.4 Mg/Ml Vial IV PUSH Q2M PRN Respiratory rate less than 10 Ondansetron HCl 4 mg 12/14/22 12:32 Ondansetron Inj 4 Mg/2 Ml Vial IV PUSH Q6H PRN Nausea And Vo
[2022-12-15] MEDS: ENOXAPARIN 40 MG/0.4 ML SYRINGE SUB-Q (08:02)
[2022-12-15] MEDS: HYDROcodone/acetaminophen (*CRX) 5-325 MG TABLET 1 TAB PO (08:02)
[2022-12-15] MEDS: SIMETHICONE 80 MG TAB.CHEW PO (08:02)
[2022-12-15] MEDS: DOCUSATE SODIUM 100 MG CAPSULE PO (08:02)
== END 2022-12-15 09:15 | disposition home or self-care (01) ==
LOC: ANHSURGERY 07:39 → ANHOB2 12:45
PROVIDERS: Visit Provider Obstetrics & Gynecology
PROC: (CPT 58552; principal; 2022-12-14 09:30)
DX: N81.4 Uterovaginal prolapse, unspecified (principal); N80.00 Endometriosis of the uterus, unspecified; N80.201 Endometriosis of right fallopian tube, unspecified depth; R10.2 Pelvic and perineal pain; N73.6 Female pelvic peritoneal adhesions (postinfective); Z87.891 Personal history of nicotine dependence
CPT/HCPCS: 58552; S2900; 36415; 85025; 85055; 88307; 99199; A9270; J1100; J1170; J1650; J1885; J2250; J2405; J2704; J2710; J3010; J7030; J7120; J7121

== ENCOUNTER 2023-04-24 09:18 | Outpatient (CLI) | payer OTHER, SELFPAY ==
[2023-04-24 10:16] LABS: Hematocrit 36.8 % (37.0-47.0); Hemoglobin 12.2 g/dL (12.0-15.0); Mean Corpuscular HGB Conc 33.2 g/dl (32-36); Mean Corpuscular Hemoglobin 30.1 pg (26-34); Mean Corpuscular Volume 90.9 fl (80-100); Platelet Count Result 193 k/mm3 (150-375); Red Blood Count 4.05 M/mm3 (4.2-5.4); Red Cell Distribution Width 11.3 % (11.5-14.5); White Blood Count 4.1 K/mm3 (4.5-10.0)
[2023-04-24 10:29] LABS: Alanine Aminotransferase 22 U/L (6-35); Albumin Level 4.7 g/dL (3.5-5.1); Alkaline Phosphatase 37 U/L (38-126); Anion Gap 4 mmol/L (8-16); Aspartate Amino Transferase 28 U/L (14-36); Bilirubin,Total 0.4 mg/dL (0.2-1.3); Blood Urea Nitrogen 18 mg/dL (7-17); CRP < 0.5 mg/dL (<1.0); Calcium 9.3 mg/dL (8.4-10.2); Carbon Dioxide 31 mmol/L (22-30); Chloride 103 mmol/L (98-107); Estimated Glomerular Filt Rate > 60; Glucose 92 mg/dL (65-110); Potassium 3.8 mmol/L (3.4-5.0); Sodium 138 mmol/L (137-145)
[2023-04-24 11:16] LABS: Iron 77 ug/dL (37-170)
[2023-04-24 11:17] LABS: Erythrocyte Sedimentation Rate 20 mm/hr (0-20)
[2023-04-24 11:26] LABS: Percent Iron Saturation 21 % (20-50)
[2023-04-30 05:38] LABS: Immunoglobulin A 211 mg/dL (47-310); TTG IGA AB <1.0 U/mL (<15.0)
[2023-05-07 14:38] LABS: Gliadin Gluten IgA <1.0 U/mL
== END 2023-04-24 09:19 | disposition home or self-care (01) ==
LOC: ANHLAB 09:20
PROVIDERS: PCP Obstetrics & Gynecology; Visit Provider Nurse Practitioner
DX: K90.41 Non-celiac gluten sensitivity (principal); M25.50 Pain in unspecified joint; R11.0 Nausea; R14.0 Abdominal distension (gaseous); R19.7 Diarrhea, unspecified; R20.2 Paresthesia of skin
CPT/HCPCS: 36415; 80053; 82607; 82728; 82784; 83540; 83550; 84443; 85027; 85652; 86003; 86140; 86364

== ENCOUNTER 2023-05-30 07:07 | Day surgery (SDC) | payer OTHER, SELFPAY ==
[2023-04-25 10:14] VITALS: BMI 22.7
[2023-05-07 11:09] VITALS: BMI 22.1
[2023-05-30 08:29] VITALS: BP 110/72; PULSE 58; RESP 16; TEMP 37.1; O2SAT 100
--- NOTE | 2023-05-30 08:34 | WPDANESEPPF ---
Anes - Initial Pre Proc Eval Procedure: Operation Date: 05/30/23 09:30 Proposed Procedures p Esophagogastroduodenoscopy - Ayden Raymond MD Date/Time: 05/30/23 08:34 Surgeon: Ayden Raymond MD Pre Op Diagnosis: Nausea, ABD Distention, Diahhea, Gluten Sensitive Patient Data Age: 38 Gender: F Height: 1.78 m Weight: 70 kg Allergies Allergy/AdvReac Type Severity Reaction Status Date / Time No Known Allergies Allergy Verified 05/30/23 08:25 Home Medications Medication Instructions Recorded Confirmed Type [id number] 200 mcg-vit K 100 1 cap PO DAILY 10/17/21 05/30/23 History mcg-lycop 500 [id number] capsule (Daily Multivitamin) Patient hx anesthesia problems: none Family hx anesthesia problems: none Results Review: All pre-operative results and documents have been reviewed as part of the pre-operative evaluation. [facility] Past Medical History Medical History Abdominal bloating Abnormal uterine bleeding Diarrhea Gluten intolerance Joint pain Nausea Tingling in extremities Surgical History Surgical History H/O abdominal hysterectomy H/O breast augmentation History of section History of laparotomy Family History Family History Mother Hypertension Social History Social History Smoking packs per day: 0.25 Smoking cigarettes per day: 5.0 Years smoked: 10 Smoking pack-years: 2.50 Smoking status: Former smoker Tobacco type: cigarettes Second hand tobacco smoke exposure: No Smoking end date: 08/05/14 Additional smoking assessment comments: PT STATES SHE WAS A SOCIAL SMOKER Alcohol intake: current Drinks per week: 0 Alcohol use details: ONE A MONTH Substance use: never Substance use type: does not use Living arrangements: with family Spiritual care concerns: No Anes - Eval Final PreProcedure Day of Procedure 05/30/23 08:34 Patient weight: normal Heart: regular rate and rhythm Lungs: clear to auscultation Airway: Mallampati scale class 1 Neurological: alert and oriented Last oral intake: >/= 8 hours ASA classification: I Emergent: no Anesthetic plan: proceed Anesthesia type and monitoring: general GIVS and standard monitoring Results Review: All pre-operative results and documents have been reviewed as part of the pre-operative evaluation. Informed Consent: The patient's anesthetic plan and its attendant risks and benefits were discussed with the patient/family/POA. Questions were solicited and answers provided to the satisfaction of the patient/family/POA.
[2023-05-30] MEDS: LACTATED RINGERS 1,000 ML 150 ML IV CONT (08:37)
--- NOTE | 2023-05-30 09:02 | PM.HPGS ---
History of Present Illness History of Present Illness Consent: Risks, benefits, and alternatives have been discussed and questions answered. Patient agrees to proceed with procedure. Chief complaint: Nausea, ABD Distention, Diahhea, Gluten Sensitive Narrative: Dior Nuñez is a 38 year old female with bloating and abdominal discomfort for over a year that improved after staying away from gluten, had negative serology for celiac but already was on gluten free diet. Never had EGD. Review of Systems Constitutional: Constitutional: Denies headache(s) and Denies weakness Eyes: Eyes: Denies blurry vision ENT: Reports Normal hearing present, Denies headache(s) and Denies neck pain Cardiovascular: Cardiovascular: Denies chest pain and Denies dyspnea Respiratory: Respiratory: Denies dyspnea Gastrointestinal: Gastrointestinal: Reports no additional gastrointestinal complaints Genitourinary: Genitourinary: Denies dysuria Musculoskeletal: Musculoskeletal: Denies neck pain Integumentary/Breasts: Skin/Breast: Denies dry skin Neurologic: Reports Normal hearing present, Denies headache(s) and Denies weakness Psychiatric: Psychiatric: Denies anxiety Endocrine: Endocrine: Denies change in body appearance Hematologic/Lymphatic: Hematologic/Lymphatic: Denies easy bleeding Allergic/Immunologic: Allergic/Immunologic: Denies urticaria PMFSH Past Medical History Medical History Abdominal bloating Abnormal uterine bleeding Diarrhea Gluten intolerance Joint pain Nausea Tingling in extremities Surgical History Surgical History H/O abdominal hysterectomy H/O breast augmentation History of section History of laparotomy Family History Family History Mother Hypertension Social History Social History Smoking packs per day: 0.25 Smoking cigarettes per day: 5.0 Years smoked: 10 Smoking pack-years: 2.50 Smoking status: Former smoker Tobacco type: cigarettes Second hand tobacco smoke exposure: No Smoking end date: 08/05/14 Additional smoking assessment comments: PT STATES SHE WAS A SOCIAL SMOKER Alcohol intake: current Drinks per week: 0 Alcohol use details: ONE A MONTH Substance use: never Substance use type: does not use Living arrangements: with family Spiritual care concerns: No Meds Home Medications and Allergies Home Medications Medication Instructions Recorded Confirmed Type [id number] 200 mcg-vit K 100 1 cap PO DAILY 10/17/21 05/30/23 History mcg-lycop 500 [id number] capsule (Daily Multivitamin) Allergies Allergy/AdvReac Type Severity Reaction Status Date / Time No Known Allergies Allergy Verified 05/30/23 08:25 Vital Signs Vital Signs - 24 hr 05/30/23 08:29 Temperature 98.7 F Pulse Rate 58 L Respiratory Rate 16 Blood Pressure 110/72 Pulse Oximetry 100 Oxygen Delivery Room Air Exam Const: General: comfortable and no acute distress HENMT: Face/Nose/Sinus: Normal nares present Eyes: General: appearance normal, both eyes and all related structures Neck: Neck: no JVD Resp: Auscultation: clear to auscultation bilaterally Cardio: Rate: regular rate Rhythm: regular rhythm GI: Inspection: non-distended GI Palp: Yes Soft to palpation Skin: General skin exam: normal color Neuro: General: gait normal Speech: normal speech Extrem: General: normal to inspection Psych: Mental Status: mental status grossly normal Assessment and Plan Assessment and plan (1) Gluten intolerance: Code(s): K90.41 - Non-celiac gluten sensitivity Status: Acute Assessment and Plan: egd with bx (2) Abdominal bloating: Code(s): R14.0 - Abdominal distension (gaseous) Status: Acute (
[2023-05-30 09:13] VITALS: BP 85/53; PULSE 53; RESP 14; O2SAT 100
[2023-05-30 09:23] VITALS: BP 89/64; BP 94/63; PULSE 50; PULSE 52; RESP 14; RESP 16; O2SAT 100
--- NOTE | 2023-05-30 09:23 | WPDANESPN ---
Anes - Prog Note Post-Op Date/Time: 05/30/23 09:23 Cardiovascular status: normal Respiratory status: normal Airway patency: baseline Mental status: baseline Post-Op hydration status: normal Vital Signs: Last Vital Signs Temp 37.1 C 05/30/23 08:29 Pulse 58 L 05/30/23 08:29 Resp 16 05/30/23 08:29 BP 110/72 05/30/23 08:29 Pulse Ox 100 05/30/23 08:29 O2 Del Method Room Air 05/30/23 08:29 Pain Score (VAS): 0/10 I/O: Intake & Output 05/29/23 05/30/23 05/30/23 23:59 07:59 15:59 Intake Total 100 Balance 100 Patient Feedback: Patient satisfied with anesthetic care.
== END 2023-05-30 09:46 | disposition home or self-care (01) ==
PROVIDERS: Visit Provider Internal Medicine Gastroenterology
PROC: 0DJ08ZZ Inspection of Upper Intestinal Tract, Via Natural or Artificial Opening Endoscopic (ICD-10-PCS; CPT 43235; principal; 2023-05-30 09:30)
DX: R14.0 Abdominal distension (gaseous) (principal)
CPT/HCPCS: 43239

== ENCOUNTER 2023-05-30 11:52 | Outpatient (NON) | payer OTHER, SELFPAY | END 2023-05-30 11:53 | disposition home or self-care (01) | LOC: ANHLAB 05-31 11:54 | PROVIDERS: Visit Provider Internal Medicine Gastroenterology | DX: R14.0 Abdominal distension (gaseous) (principal); K29.80 Duodenitis without bleeding; K31.9 Disease of stomach and duodenum, unspecified | CPT/HCPCS: 88305 ==

== ENCOUNTER 2024-08-27 08:26 | Outpatient (CLI) | payer OTHER, SELFPAY ==
--- NOTE | ~2024-08-27 | MM_ITS ---
EXAMINATION: MM scrn kory implant BI w lorena HISTORY: Screening mammogram TECHNIQUE: Craniocaudal and mediolateral oblique 3-D tomosynthesis images with implant displacement a nd synthetic 2-D images were generated. Craniocaudal and mediolateral oblique views of the breasts wi thout implant displacement were obtained using full field digital mammography. CAD analysis was submi tted and interpreted. COMPARISON: No prior mammogram is available for comparison at this institution. BREAST PARENCHYMAL COMPOSITION: Dense: The breasts are heterogeneously dense, which may obscure small masses FINDINGS: There is no evidence of suspicious mass, calcification, or architectural distortion to sugg est malignancy in either breast. There has been no suspicious interval change. IMPRESSION: 1. No mammographic evidence of malignancy. 2. Recommend routine screening mammography in one year. BI-RADS Category 1: Negative Reviewed, dictated and finalized at location A. CUTTER OPERATOR
== END 2024-08-27 08:27 | disposition home or self-care (01) ==
PROVIDERS: Visit Provider Obstetrics & Gynecology
DX: Z12.31 Encounter for screening mammogram for malignant neoplasm of breast (principal)
CPT/HCPCS: 77063; 77067